=== PATIENT | female | born 1975 | race Caucasian/White ===

== ENCOUNTER 2019-03-20 09:15 | Day surgery (SDC) | payer MEDICAID ==
[~2019-03-20 09:15] MED LIST: Lidocaine 0.5% 50 ML SDV ONE; Lidocaine 1% with EPINEPHrine 1:100,000 50 ML MDV ONE; Midazolam 1 MG/ML 2 ML SDV ONE; Propofol 200 MG/20 ML SDV ONE; fentaNYL 100 MCG/2 ML SDV ONE
[2019-03-20] MEDS ORDERED: Dextrose 5%-Lactated Ringers 1,000 ML IV SCH (10:15)
[2019-03-20] MEDS ORDERED: Acetaminophen 500 MG Tab PO ONE (10:15)
[2019-03-20] MEDS ORDERED: ceFAZolin 2 GM in Sodium Chloride 0.9% 50 ML IV ONE (10:30)
[2019-03-20] MEDS ORDERED: Ketorolac 60 MG/2 ML SDV ONE (10:47)
[2019-03-20] MEDS ORDERED: hydrOXYzine HCL 100 MG/2 ML SDV IM ONE (11:10)
[2019-03-20 12:42] VITALS: BP 105/62; PULSE 67
--- NOTE | 2019-03-22 12:57 | OR ---
DATE OF PROCEDURE: 03/20/2019 SURGEON: Kishor Oviedo MD PREOPERATIVE DIAGNOSIS: Right carpal tunnel syndrome. POSTOPERATIVE DIAGNOSIS: Right carpal tunnel syndrome. OPERATIVE PROCEDURE: Right carpal tunnel release (38208). ANESTHESIA: IV block plus sedation. INDICATION FOR PROCEDURE: This is a 43-year-old female presenting with a right carpal tunnel syndrome confirmed by EMG and also clinically fairly straightforward in terms of its presentation. Plan is to proceed with a right carpal tunnel release. Potential risks including bleeding, infection, injury to the median nerve or its branches, as well as possible incomplete relief of symptoms were all gone over, and the patient wishes to proceed. DETAILS OF PROCEDURE: The patient was taken to the operating room after IV sedation was administered. The right forearm was anesthetized with IV block and then prepped and draped. A standard right carpal tunnel incision was made and carried down through the skin and subcutaneous tissue. The transverse carpal ligament was then divided, it was quite thickened, and ulnar orientation to the underlying median nerve was maintained as it was divided and until there was complete relief of any pressure on the median nerve. This was divided somewhat proximally underneath the incision as well, and at that point, the median nerve was inspected and found to be intact. The subdermal layer with 4-0 Vicryl stitch was then placed followed by 5-0 Prolene skin stitch. Dressing was applied. The patient was taken to the recovery room in satisfactory condition. There were no evident complications. Kishor Oviedo MD /[id number]
== END 2019-03-20 12:55 | disposition home or self-care (01) ==
LOC: JP.SDS 09:15
PROVIDERS: ATTEND Surgery
DX: G56.01 Carpal tunnel syndrome, right upper limb (principal); Z88.5 Allergy status to narcotic agent
CPT/HCPCS: 64721; 81025; A9270; J0690; J1885; J2001; J2250; J2704; J3010; J3410; J7050; J7121

== ENCOUNTER 2020-07-22 10:41 | Emergency (ER) | payer MEDICAID ==
[2020-07-22 10:54] VITALS: BP 116/82; PULSE 89
--- NOTE | 2020-07-22 11:35 | EDM.PDOC ---
ED HPI GENERAL MEDICAL PROBLEM - General Chief Complaint: Respiratory Problem Stated Complaint: CHEST PAIN Time Seen by Provider: 07/22/20 11:15 Source of Information: Reports: Patient History Limitations: Reports: No Limitations - History of Present Illness INITIAL COMMENTS - FREE TEXT/NARRATIVE: 45-year-old female has been having shortness of breath with activity since , several weeks, but has developed more pleuritic pain especially with activity over the past 48 hours. The pain is substernal and transmits directly through to her back. A dry cough but no productive sputum, no fever, no nausea or vomiting, no peripheral edema. She has not had a Covid vaccination. Onset: Gradual Duration: Week(s): (2 weeks) Location: Reports: Chest Associated Symptoms: Reports: Chest Pain, Malaise, Shortness of Breath (Especially with activity). Denies: Fever/Chills, Headaches, Loss of Appetite, Nausea/Vomiting, Weakness Chest Pain Score (Numeric/FACES): 3 - Related Data Allergies Allergy/AdvReac Type Severity Reaction Status Date / Time hydrocodone AdvReac Mild Itching Verified 07/22/20 11:00 hydromorphone [From Dilaudid] AdvReac Nausea and Verified 07/22/20 11:00 Vomiting Home Meds: Home Meds HCTZ/Triamterene [Maxzide 25-37.5 MG] 25 - 37.5 mg PO DAILY 03/16/19 [History] Potassium Chloride 10 meq PO DAILY 03/16/19 [History] Topiramate [Topamax] 50 mg PO BID 03/16/19 [History] Lisdexamfetamine [Vyvanse] 30 mg PO DAILY 07/22/20 [History] Potassium Chloride 20 meq PO DAILY 07/22/20 [History] Past Medical History HEENT History: Reports: None Cardiovascular History: Reports: Arrhythmia, High Cholesterol, Hypertension, Other (See Below) Other Cardiovascular History: palpitations Respiratory History: Reports: None Gastrointestinal History: Reports: None Genitourinary History: Reports: None NIB FINISHER History: Reports: Musculoskeletal History: Reports: Fracture, Other (See Below) Other Musculoskeletal History: left wrist; tennis elbow Neurological History: Reports: Vertigo, Other (See Below) Other Neuro History: meneires disease Psychiatric History: Reports: ADHD, Depression Endocrine/Metabolic History: Reports: Other (See Below) Other Endocrine/Metabolic History: Potassium deficency - Infectious Disease History Infectious Disease History: Reports: Chicken Pox - Past Surgical History HEENT Surgical History: Reports: Tonsillectomy Other HEENT Surgeries/Procedures: meniers Cardiovascular Surgical History: Reports: None GI Surgical History: Reports: None Female Surgical History: Reports: D&C, LEEP, Tubal Ligation Endocrine Surgical History: Reports: None Neurological Surgical History: Reports: None Musculoskeletal Surgical History: Reports: None Dermatological Surgical History: Reports: None Social & Family History - Family History : Reports: Renal Disease/Insufficiency Musculoskeletal: Reports: RA Neurological: Reports: CVA Psychiatric: Reports: Bipolar Endocrine/Metabolic: Reports: Diabetes, Type I Oncologic: Reports: Leukemia - Tobacco Use Tobacco Use Status *Q: Never Tobacco User - Caffeine Use Caffeine Use: Reports: Coffee, Energy Drinks - Recreational Drug Use Recreational Drug Use: No ED ROS GENERAL - Review of Systems Review Of Systems: See Below Constitutional: Denies: Fever, Chills Respiratory: Reports: Shortness of Breath, Cough. Denies: Wheezing, Sputum, Hemoptysis Cardiovascular: Reports: Chest Pain. Denies: Palpitations GI/Abdominal: Reports: No Symptoms Musculoskeletal: Reports: Back Pain Skin: Reports: No Symptoms Neurological: Reports: Paresthesia (Became anxious this morning and developed so me paresthesias in her hands) Psychiatric: Reports: Anxiety ED EXAM, GENERAL - Physical Exam Exam: See Below Exam Limited By: No Limitations General Appearance: Alert, No Apparent Distress Eye Exam: Bilateral Eye: Normal Inspection Head: Atraumatic Respiratory/Chest: Lungs Clear Cardiovascular: Regular Rate, Rhythm. No: Tachycardia Extremities: Normal Inspection. No: Pedal Edema Neurological: Alert, Oriented Psychiatric: Anxious Skin Exam: Warm, Dry Course - Vital Signs Last Recorded V/S: Last Vital Signs Temp 98.4 F 07/22/20 10:57 Pulse 89 07/22/20 10:57 Resp 16 07/22/20 10:57 BP 116/82 07/22/20 10:57 Pulse Ox 96 07/22/20 10:57 - Orders/Labs/Meds Orders: Active Orders 24 hr Category Date Time Status Chest 2V [CR] Stat Exams 07/22/20 11:25 Taken Isolation [COMM] Stat Oth 07/22/20 11:25 Ordered Labs: Laboratory Tests 07/22/20 07/22/20 07/22/20 Range/Units 11:25 11:40 11:40 WBC 8.1 (4.5-11.0) K/uL RBC 5.24 (3.30-5.50) M/uL Hgb 15.8 H D (12.0-15.0) g/dL Hct 44.8 (36.0-48.0) % MCV 86 (80-98) fL MCH 30 (27-31) pg MCHC 35 (32-36) % Plt Count 310 (150-400) K/uL Neut % (Auto) 59 (36-66) % Lymph % (Auto) 29 (24-44) % [place] % (Auto) 10 H (2-6) % Eos % (Auto) 1 L (2-4) % Baso % (Auto) 1 (0-1) % D-Dimer, Quantitative 307.01 (0.0-500.0) ng/mL Sodium (140-148) mmol/L Potassium (3.6-5.2) mmol/L Chloride (100-108) mmol/L Carbon Dioxide (21-32) mmol/L Anion Gap (5.0-14.0) mmol/L BUN (7-18) mg/dL Creatinine (0.6-1.0) mg/dL Est Cr Clr Drug Dosing mL/min Estimated GFR (MDRD) (>60) Glucose (74-106) mg/dL Calcium (8.5-10.1) mg/dL Influenza Type A RNA Negative (NEGATIVE) RSV RNA (INAAT) Negative (NEGATIVE) Influenza Type B RNA Negative (NEGATIVE) SARS-CoV-2 RNA (DALE) Negative (NEGATIVE) 07/22/20 Range/Units 11:40 WBC (4.5-11.0) K/uL RBC (3.30-5.50) M/uL Hgb (12.0-15.0) g/dL Hct (36.0-48.0) % MCV (80-98) fL MCH (27-31) pg MCHC (32-36) % Plt Count (150-400) K/uL Neut % (Auto) (36-66) % Lymph % (Auto) (24-44) % [place] % (Auto) (2-6) % Eos % (Auto) (2-4) % Baso % (Auto) (0-1) % D-Dimer, Quantitative (0.0-500.0) ng/mL Sodium 142 (140-148) mmol/L Potassium 3.1 L (3.6-5.2) mmol/L Chloride 103 (100-108) mmol/L Carbon Dioxide 27 (21-32) mmol/L Anion Gap 15.1 H (5.0-14.0) mmol/L BUN 12 (7-18) mg/dL Creatinine 0.9 (0.6-1.0) mg/dL Est Cr Clr Drug Dosing 66.67 mL/min Estimated GFR (MDRD) > 60 (>60) Glucose 96 (74-106) mg/dL Calcium 9.4 (8.5-10.1) mg/dL Influenza Type A RNA (NEGATIVE) RSV RNA (INAAT) (NEGATIVE) Influenza Type B RNA (NEGATIVE) SARS-CoV-2 RNA (DALE) (NEGATIVE) - Re-Assessments/Exams Free Text/Narrative Re-Assessment/Exam: 07/22/20 12:32 Chest x-ray is normal, CBC is normal, D-dimer normal, 4 Plex viral study negative. Patient was reassured that this likely is a lingering pleurisy from her recent viral infection and can be treated with anti-inflammatories. She will be discharged with 10 doses of Toradol to take every 6-8 hours until gone and increase activity as tolerated. Departure - Departure Time of Disposition: 12:33 Disposition: Home, Self-Care 01 Clinical Impression: Pleurisy - Discharge Information Instructions: Pleurisy, [id number] Referrals: Leila Butcher CNM [Primary Care Provider] - Forms: ED Department Discharge Care Plan Goals: Take 1 dose of Toradol every 6-8 hours until gone, increase activity as tolerated and recheck in 3 to 4 days if not improving satisfactorily. Return sooner if worsening such as high persistent fever, difficulty breathing or other concerns. Sepsis Event Note (ED) - Evaluation Sepsis Screening Result: No Definite Risk - Focused Exam Vital Signs: Vital Signs Temp Pulse Resp BP Pulse Ox 07/22/20 10:57 98.4 F 89 16 116/82 96 07/22/20 10:53 98.4 F 89 16 116/82 96 - My Orders Last 24 Hours: My Active Orders 07/22/20 11:25 Chest 2V [CR] Stat Isolation [COMM] Stat - Assessment/Plan Last 24 Hours: My Active Orders 07/22/20 11:25 Chest 2V [CR] Stat Isolation [COMM] Stat
[2020-07-22 12:16] LABS: CORONAVIRUS COVID-19 NAA NEGATIVE (NEGATIVE)
--- NOTE | 2020-07-22 13:45 | CR ---
CHEST: 2 view CLINICAL HISTORY:SOB COMPARISON:None FINDINGS: The heart size, pulmonary vascularity and hilar structures are normal. No infiltrate effusion or pneumothorax is seen. IMPRESSION: No acute cardiopulmonary process.
== END 2020-07-22 12:49 | disposition home or self-care (01) ==
LOC: JP.ED 10:41
DX: R09.1 Pleurisy (principal); R06.02 Shortness of breath; R05 Cough; M54.9 Dorsalgia, unspecified; R20.2 Paresthesia of skin; I10 Essential (primary) hypertension; Z88.5 Allergy status to narcotic agent; Z79.899 Other long term (current) drug therapy; Z20.822 Contact with and (suspected) exposure to COVID-19
CPT/HCPCS: 0241U; 36415; 71046; 71046-26; 80048; 85025; 85379; 99285-25

== ENCOUNTER 2023-10-16 13:18 | Emergency (ER) | payer OTHER ==
[2023-10-16 13:36] VITALS: BP 143/71; PULSE 98
[2023-10-16] MEDS: oxyCODONE 5 MG Tab PO ONE (13:53)
== END 2023-10-16 15:18 | disposition home or self-care (01) ==
LOC: JP.ED 13:18
DX: S86.911A Strain of unspecified muscle(s) and tendon(s) at lower leg level, right leg, initial encounter (principal); Z86.16 Personal history of COVID-19; Z79.899 Other long term (current) drug therapy; Z88.5 Allergy status to narcotic agent
CPT/HCPCS: 73562; 99283; A9270

== ENCOUNTER 2023-11-02 08:21 | Day surgery (SDC) | payer OTHER ==
[2023-11-02] MEDS ORDERED: Propofol 200 MG/20 ML SDV ONE (08:32)
[2023-11-02] MEDS ORDERED: fentaNYL 100 MCG/2 ML SDV ONE ×5 (08:32→11:13)
[2023-11-02] MEDS ORDERED: Dexamethasone 4 MG/ML SDV ONE (08:33)
[2023-11-02] MEDS ORDERED: Ondansetron 4 MG/2 ML SDV ONE (08:33)
[2023-11-02 08:56] LABS: HEMATOCRIT 37.5 % (34.3-46.0); HEMOGLOBIN 13.2 g/dL (11.2-15.5); MEAN CORPUSCULAR HEMOGLOBIN 29.5 pg (31.6-35.5); MEAN CORPUSCULAR HGB CONC 35.2 g/dL (31.6-35.5); MEAN CORPUSCULAR VOLUME 83.9 fL (81.4-99.0); RED BLOOD CELL COUNT 4.47 M/uL (3.77-5.24)
[2023-11-02] MEDS: Lactated Ringers 1,000 ML IV SCH (09:07)
[2023-11-02 09:12] LABS: CALCIUM 8.7 mg/dL (8.5-10.1); CREATININE 0.9 mg/dL (0.6-1.0); EST CRCL DRUG DOSING (CG) 64.61 mL/min; POTASSIUM,K 3.5 mmol/L (3.6-5.2)
[2023-11-02] MEDS: Nozin Nasal Sanitizer NASBOTH ONE (09:12)
[2023-11-02 09:16] LABS: ANION GAP 12.5 mmol/L (5.0-14.0)
[2023-11-02] MEDS ORDERED: Midazolam 1 MG/ML 2 ML SDV ONE (09:26)
[2023-11-02] MEDS: ceFAZolin 2 GM in Premix Bag 1 BAG IV ONE (10:15)
[2023-11-02] MEDS: Bupivacaine 0.5% 30 ML SDV ONE (10:49)
[2023-11-02] MEDS ORDERED: Lactated Ringers 1,000 ML ONE (11:06)
[2023-11-02] MEDS ORDERED: Ketorolac 30 MG/ML SDV ONE (11:10)
[2023-11-02] MEDS: Acetaminophen/oxyCODONE 325-5 MG Tab PO PRN (12:40)
[2023-11-02 13:12] VITALS: BP 144/81; PULSE 83
== END 2023-11-02 13:20 | disposition home or self-care (01) ==
LOC: JP.SDS 08:21
PROVIDERS: ATTEND Specialist
DX: M21.961 Unspecified acquired deformity of right lower leg (principal); F32.A Depression, unspecified; Z88.8 Allergy status to other drugs, medicaments and biological substances; Z88.5 Allergy status to narcotic agent
CPT/HCPCS: 01400; 29879; 36415; 80048; 84703; 85027; 93005; 93010; A9270; J0665; J0690; J1100; J1885; J2250; J2405; J2704; J3010; J7120